=== PATIENT | male | born 1965 ===

== ENCOUNTER 2021-05-05 05:39 | Day surgery (SDC) | payer OTHER ==
[~2021-05-05 05:39] MED LIST: ZESTRIL10 M1 PO; ZYRTEC10 M3 PO
== END 2021-05-05 12:35 | disposition home or self-care (01) ==
LOC: CIR.AMB 05:39
PROVIDERS: ATTEND Colon & Rectal Surgery
DX: K64.4 Residual hemorrhoidal skin tags (principal); K64.8 Other hemorrhoids